=== PATIENT | female | born 1985 | race Caucasian/White ===

== ENCOUNTER 2017-03-31 08:33 | Emergency (ER) | payer OTHER ==
[~2017-03-31] VITALS: Ht 160 cm; Wt 52.2 kg
[2017-03-31 08:33] VITALS: BP 118/79
== END 2017-03-31 09:22 | disposition home or self-care (01) ==
LOC: ER 08:35
DX: B07.9 Viral wart, unspecified (principal); Z91.018 Allergy to other foods
CPT/HCPCS: 99281; Z7610; Z7502

== ENCOUNTER 2017-08-31 23:26 | Emergency (ER) | payer OTHER ==
[~2017-08-31] VITALS: Ht 160 cm; Wt 61.2 kg
[2017-08-31 23:51] VITALS: BP 118/86
== END 2017-09-01 01:22 | disposition home or self-care (01) ==
LOC: ER 23:26
DX: R04.0 Epistaxis (principal); Z91.018 Allergy to other foods
CPT/HCPCS: A4606; Z7502; Z7610